=== PATIENT | male | born 1955 | race Caucasian/White ===

== ENCOUNTER 2024-06-11 09:40 | Outpatient (AMB) | payer MEDICARE, SELFPAY ==
--- NOTE | 2024-06-11 09:49 | MHC.OFFVIS ---
Vital Signs 06/11/24 09:50 Height 5 ft 8 in Weight 178 lb BMI 27.1 BP 156/69 H Blood Pressure Location Rt brachial Position Sitting Pulse 76 Pulse Source Pulse Oximeter Pulse Oximetry (%) 98 Oxygen Delivery Method Room Air Intake Visit Reasons: L Shoulder Pain Allergies amoxicillin [From Augmentin] Adverse Reaction (Mild, Verified 06/11/24 09:53) Nausea clavulanic acid [From Augmentin] Adverse Reaction (Mild, Verified 06/11/24 09:53) Nausea Medication List - Last Reconciled 06/11/24 by Raiza Hackett amlodipine 10 mg PO DAILY aspirin 81 mg PO DAILY cholecalciferol (vitamin D3) 25 mcg PO DAILY citalopram 10 mg PO DAILY lisinopril 5 mg PO DAILY lysine (L-Lysine) 500 mg PO DAILY multivitamin 1 tab PO DAILY HPI Comments Details: Marcelino is a very pleasant 69 year old male who presents to the office today for evaluation and management of his chronic left shoulder pain He has been suffering with this pain for almost 2 years. Has been taking motrin without improvement. Received two trigger point injections at [facility] that provided short term relief but pain persists Referred to PT from his PCP and is awaiting start date Pain today is rated as 7/10, worse with movement and palpation Pain exacerbated by use of left arm, palpation over posterior shoulder at lateral base of scapula and with lying on left side. Reports he had imaging of the shoulder approx 1 year ago and was diagnosed with calcific tendonitis. Results are not available for review at this time In terms of muscle damage condition is described as aching, stabbing, throbbing, tingling. Pain is negatively impacting patients general activity, enjoyment of life, normal work, recreational activities and sleep [facility] Medical History (Updated 06/11/24 @ 10:50 by Meenakshi Mirza, [employer] APPRENTICE, [employer]) Carotid stenosis Anxiety Hyperlipidemia Hypertension Review of Systems Const All systems reviewed & are unremarkable except as noted in HPI and below Physical Exam Vital Signs: Last Vital Signs Pulse 76 06/11/24 09:50 BP 156/69 H 06/11/24 09:50 Pulse Ox 98 06/11/24 09:50 Oxygen Delivery Method Room Air 06/11/24 09:50 BMI result Body Mass Index 27.1 General: awake, alert, oriented. Answers questions appropriately. Fully engaged in examination. Skin: warm, dry, intact HEENT: Normocephalic. Hearing intact. Cardiac: External chest normal in appearance. Respiratory: No cough, audible wheezing or stridor. Abdomen: without gross distension. MS: No obvious swelling or deformities. Tenderness to palpation over left infraspinatus muscle with palpable trigger point Left Shoulder: Pain with external rotation, overhead reach and transverse abduction Neurological: Oriented to person, place, time and situation. Thought process intact. No gait abnormalities appreciated. Psychiatric: Appropriate mood and affect. Good judgment and insight. Assessment & Plan Assessment & Plan (1) Left shoulder pain: Code(s): M25.512 - Pain in left shoulder Category: Medical (2) Myofascial pain on left side: Code(s): M79.18 - Myalgia, other site Category: Medical Plan Marcelino is a very pleasant 61-year-old male who presented to the office today for evaluation and management of his chronic left shoulder pain Continue with plan for physical therapy Methocarbamol 500 mg p.o. twice daily as needed. Lidocaine 5% topical patches apply to most painful area as needed. On for 12 hours off for 12 hours. Follow up after PT, sooner if needed. Medications: New lidocaine 5% leave on most painful area for up to 12 hrs 1 patch topical DAILY PRN 30 ea 3RF pain methocarbamol No driving while taking this medication. Do no take with alcohol or other [employer] Depressants 500 mg PO BID PRN 60 tabs 1RF muscle spasm Coding Level of Care Code New Pt Level 4 (93334) Diagnoses Left shoulder pain M25.512 Myofascial pain on left side M79.18
[2024-06-11 09:50] VITALS: BP 156/69; PULSE 76; O2SAT 98; BMI 27.1
== END 2024-06-11 10:41 | disposition home or self-care (01) ==
PROVIDERS: PCP Internal Medicine; Visit Provider Registered Nurse Emergency
DX: M25.512 Pain in left shoulder (principal); M79.18 Myalgia, other site
CPT/HCPCS: 99204

== ENCOUNTER → 2024-06-11 09:40 | Outpatient (BNVA) | payer MEDICARE, SELFPAY | PROVIDERS: PCP Internal Medicine; Visit Provider Registered Nurse Emergency | DX: M25.512 Pain in left shoulder (principal); M79.18 Myalgia, other site | CPT/HCPCS: 99202 ==